=== PATIENT | female | born 1975 | race Caucasian/White ===

== ENCOUNTER 2017-05-04 23:51 | Emergency (ER) | payer SELFPAY ==
[~2017-05-04] VITALS: Ht 154.9 cm; Wt 63.6 kg
[~2017-05-04 23:51] MED LIST: IBUP-232 PO; Z.0.NO CURRENT MEDS
[2017-05-05] VITALS: BP 114/67; PULSE 62; RESP 24; TEMP 98.2; O2SAT 99
--- NOTE | 2017-05-05 00:24 | PD ---
HPI Chief Complaint: Chest Pain Time Seen by Provider: 00:02 Travel History International Travel<30 days: No Contact w/Intl Traveler<30days: No Traveled to known affect area: No History of Present Illness HPI digital account director used. 42yo F with no PMH presents to the ED with c/o left side chest pain at 10:30pm. States pain is constant and nonradiating. Cant really describe it. Has some tingling in her fingers in both hands as well as perioral numbness. That has now resolved. Denies any fever, sob, n/v, abdominal pain, focal weakness. Pt took aspirin 325mg PO and pain is better. No history of PE/DVT, recent travel or surgery. No family history of sudden cardiac . PFSH Past Medical History Medical History: Denies Significant Hx Immunizations Current: No Influenza Vaccination: No ?: Unknown : 5 Para: 5 Tubal Ligation: Yes (2001) Past Surgical History Surgical History: No Previous Surgery Social History Alcohol Use: No Tobacco Use: No Substance Use: No Allergies-Medications (Allergen,Severity, Reaction): Coded Allergies: No Known Allergies (Verified , 03/17/13) Reported Meds & Prescriptions Reported Meds & Active Scripts Active Motrin (Ibuprofen) 600 Mg Tab 1 Tab PO TID NEEDED FOR PAIN Reported No Current Meds (Miscellaneous Medication) Misc Review of Systems Except as stated in HPI: all other systems reviewed are Neg Physical Exam Narrative GENERAL: 42yo F in mild distress. SKIN: Focused skin assessment warm/dry. HEAD: Atraumatic. Normocephalic. EYES: Pupils equal and round. No scleral icterus. No injection or drainage. ENT: No nasal bleeding or discharge. Mucous membranes pink and moist. NECK: Trachea midline. No JVD. CARDIOVASCULAR: Regular rate and rhythm. No murmur appreciated. RESPIRATORY: No accessory muscle use. Clear to auscultation. Breath sounds equal bilaterally. GASTROINTESTINAL: Abdomen soft, non-tender, nondistended. MUSCULOSKELETAL: No obvious deformities. No clubbing. No cyanosis. No edema. NEUROLOGICAL: Awake and alert. No obvious cranial nerve deficits. Motor grossly within normal limits. Normal speech. PSYCHIATRIC: Appropriate mood and affect; insight and judgment normal. Data Data Last Documented VS Vital Signs Date Time Temp Pulse Resp B/P (MAP) Pulse Ox O2 Delivery O2 Flow Rate FiO2 05/05/17 08:21 05/05/17 07:00 98.5 72 17 100 Room Air Orders Orders Electrocardiogram (05/05/17 00:08) Basic Metabolic Panel (Bmp) (05/05/17 00:08) Complete Blood Count With Diff (05/05/17 00:08) Magnesium (Mg) (05/05/17 00:08) Prothrombin Time / Inr (Pt) (05/05/17 00:08) Act Partial Throm Time (Ptt) (05/05/17 00:08) Troponin I (05/05/17 00:08) Chest, Single Ap (05/05/17 00:08) Ecg Monitoring (05/05/17 00:08) Bilateral Bp Monitoring (05/05/17 00:08) Iv Access Insert/Monitor (05/05/17 00:08) Oximetry (05/05/17 00:08) Oxygen Administration (05/05/17 00:08) Sodium Chloride 0.9% Flush (Ns Flush) (05/05/17 00:15) Nitroglycerin Sl (Nitrostat Sl) (05/05/17 00:15) Potassium Chloride (Kcl) (05/05/17 01:30) Potassium Chlor 20 Meq Premix (Kcl 20 Me (05/05/17 01:30) Basic Metabolic Panel (Bmp) (05/05/17 06:30) Troponin I (05/05/17 06:31) Ed Discharge Order (05/05/17 08:15) Labs Laboratory Tests Test 05/05/17 00:40 05/05/17 06:32 White Blood Count 7.4 TH/MM3 Red Blood Count 4.80 MIL/MM3 Hemoglobin 13.8 GM/DL Hematocrit 40.0 % Mean Corpuscular Volume 83.3 FL Mean Corpuscular Hemoglobin 28.8 PG Mean Corpuscular Hemoglobin Concent 34.5 % Red Cell Distribution Width 13.1 % Platelet Count 202 TH/MM3 Mean Platelet Volume 11.2 FL Neutrophils (%) (Auto) 65.7 % Lymphocytes (%) (Auto) 25.5 % Monocytes (%) (Auto) 5.8 % Eosinophils (%) (Auto) 2.4 % Basophils (%) (Auto) 0.6 % Neutrophils # (Auto) 4.9 TH/MM3 Lymphocytes # (Auto) 1.9 TH/MM3 Monocytes # (Auto) 0.4 TH/MM3 Eosinophils # (Auto) 0.2 TH/MM3 Basophils # (Auto) 0.0 TH/MM3 CBC Comment DIFF FINAL Differential Comment Prothrombin Time 10.9 SEC Prothromb Time International Ratio 1.0 RATIO Activated Partial Thromboplast Time 24.2 SEC Blood Urea Nitrogen 10 MG/DL 8 MG/DL Creatinine 0.83 MG/DL 0.61 MG/DL Random Glucose 126 MG/DL 102 MG/DL Calcium Level 8.9 MG/DL 8.3 MG/DL Magnesium Level 1.8 MG/DL Sodium Level 141 MEQ/L 138 MEQ/L Potassium Level 2.5 MEQ/L 5.7 MEQ/L Chloride Level 107 MEQ/L 109 MEQ/L Carbon Dioxide Level 24.2 MEQ/L 23.4 MEQ/L Anion Gap 10 MEQ/L 6 MEQ/L Estimat Glomerular Filtration Rate 76 ML/MIN 108 ML/MIN Troponin I LESS THAN 0.02 NG/ML LESS THAN 0.02 NG/ML MDM Medical Decision Making Medical Screen Exam Complete: Yes Emergency Medical Condition: Yes Interpretation(s) EKG: NSR 98bpm. Normal axis. No ST segment elevation or depression. Differential Diagnosis ACS vs. anxiety vs. GERD vs. musculoskeletal pain Narrative Course 42yo F with atypical chest pain that sounds like anxiety. No cardiac risk factors. Will do labs including cardiac enzyme and signed out to PA to follow up. CXR negative. Pt can follow up as outpatient if negative labs. Diagnosis Primary Impression: Atypical chest pain Danitza Rodriguez DO May 05, 2017 00:24
[2017-05-05] MEDS: NITROGLYCERIN 0.4 MG SL 25 TABS/BTL SL SCH ×3 (00:25→00:50)
[2017-05-05 00:40] VITALS: BP 129/83
[2017-05-05] MEDS: SODIUM CHLORIDE 0.9% FLUSH 10 ML FLUSH IVF PRN ×2 (00:42→01:56)
[2017-05-05 00:49] VITALS: BP 122/76
[2017-05-05 00:58] LABS: AUTOMATED NEUTROPHIL # 4.9 TH/MM3 (1.8-7.7); BASOPHIL % 0.6 % (0.0-2.0); EOSINOPHIL # 0.2 TH/MM3 (0-0.4); EOSINOPHIL % 2.4 % (0.0-4.0); HEMOGLOBIN 13.8 GM/DL (11.6-15.3); LYMPH % 25.5 % (9.0-44.0); LYMPHOCYTE # 1.9 TH/MM3 (1.0-4.8); MEAN CELL VOLUME 83.3 FL (80.0-100.0); MEAN CORPUSCULAR HEMOGLOBIN 28.8 PG (27.0-34.0); MEAN CORPUSCULAR HGB CONC 34.5 % (32.0-36.0); MEAN PLATELET VOLUME 11.2 FL (7.0-11.0); MONO % 5.8 % (0.0-8.0); MONOCYTE # 0.4 TH/MM3 (0-0.9); NEUT % 65.7 % (16.0-70.0); PLATELET COUNT 202 TH/MM3 (150-450); RED CELL DISTRIBUTION WIDTH 13.1 % (11.6-17.2); WHITE BLOOD COUNT 7.4 TH/MM3 (4.0-11.0)
[2017-05-05 01:07] LABS: PROTHROMBIN TIME - PATIENT 10.9 SEC (9.8-11.6)
--- NOTE | 2017-05-05 01:11 | RADRPT ---
EXAM DATE/TIME: 05/05/2017 00:28 [facility] COMPARISON: No previous studies available for comparison. INDICATIONS : Chest pain. MEDICAL HISTORY : None. SURGICAL HISTORY : None. ENCOUNTER: Initial ACUITY: 1 day PAIN SCORE: 5/10 LOCATION: Bilateral chest FINDINGS: A single view of the chest demonstrates the lungs to be symmetrically aerated without evidence of mas s, infiltrate or effusion. The cardiomediastinal contours are unremarkable. Osseous structures are intact. CONCLUSION: No acute disease. Warren Graves MD on May 05, 2017 at 1:09 Board Certified Radiologist. This report was verified electronically.
[2017-05-05 01:14] VITALS: BP 126/76; PULSE 82
[2017-05-05 01:15] LABS: BICARBONATE 24.2 MEQ/L (21.0-32.0); BLOOD UREA NITROGEN 10 MG/DL (7-18); CALCIUM 8.9 MG/DL (8.5-10.1); CHLORIDE 107 MEQ/L (98-107); CREATININE 0.83 MG/DL (0.50-1.00); GLOMERULAR FILTRATION RATE 76 ML/MIN (>89); GLUCOSE,RANDOM 126 MG/DL (74-106); MAGNESIUM 1.8 MG/DL (1.5-2.5); SODIUM (NA) 141 MEQ/L (136-145); TROPONIN I LESS THAN 0.02 NG/ML (0.02-0.05)
[2017-05-05] MEDS ORDERED: POTASSIUM CHLORIDE 20 MEQ CONTROLLED RELEASE TAB PO ONE (01:30)
[2017-05-05] MEDS: POTASSIUM CHLOR 20 MEQ PREMIX 100 ML IV SCH ×3 (01:56→05:40)
[2017-05-05 06:30] VITALS: BP 128/69; PULSE 69; RESP 14; O2SAT 100
--- NOTE | 2017-05-05 06:57 | PD ---
Physical Exam Date Seen by Provider: May 05, 2017 Time Seen by Provider: 06:53 Data Data Last Documented VS Vital Signs Date Time Temp Pulse Resp B/P (MAP) Pulse Ox O2 Delivery O2 Flow Rate FiO2 05/05/17 06:30 69 14 128/69 (88) 100 Room Air 05/05/17 00:00 98.2 Orders Orders Electrocardiogram (05/05/17 00:08) Basic Metabolic Panel (Bmp) (05/05/17 00:08) Complete Blood Count With Diff (05/05/17 00:08) Magnesium (Mg) (05/05/17 00:08) Prothrombin Time / Inr (Pt) (05/05/17 00:08) Act Partial Throm Time (Ptt) (05/05/17 00:08) Troponin I (05/05/17 00:08) Chest, Single Ap (05/05/17 00:08) Ecg Monitoring (05/05/17 00:08) Bilateral Bp Monitoring (05/05/17 00:08) Iv Access Insert/Monitor (05/05/17 00:08) Oximetry (05/05/17 00:08) Oxygen Administration (05/05/17 00:08) Sodium Chloride 0.9% Flush (Ns Flush) (05/05/17 00:15) Nitroglycerin Sl (Nitrostat Sl) (05/05/17 00:15) Potassium Chloride (Kcl) (05/05/17 01:30) Potassium Chlor 20 Meq Premix (Kcl 20 Me (05/05/17 01:30) Basic Metabolic Panel (Bmp) (05/05/17 06:30) Troponin I (05/05/17 06:31) Labs Laboratory Tests Test 05/05/17 00:40 05/05/17 06:32 White Blood Count 7.4 TH/MM3 Red Blood Count 4.80 MIL/MM3 Hemoglobin 13.8 GM/DL Hematocrit 40.0 % Mean Corpuscular Volume 83.3 FL Mean Corpuscular Hemoglobin 28.8 PG Mean Corpuscular Hemoglobin Concent 34.5 % Red Cell Distribution Width 13.1 % Platelet Count 202 TH/MM3 Mean Platelet Volume 11.2 FL Neutrophils (%) (Auto) 65.7 % Lymphocytes (%) (Auto) 25.5 % Monocytes (%) (Auto) 5.8 % Eosinophils (%) (Auto) 2.4 % Basophils (%) (Auto) 0.6 % Neutrophils # (Auto) 4.9 TH/MM3 Lymphocytes # (Auto) 1.9 TH/MM3 Monocytes # (Auto) 0.4 TH/MM3 Eosinophils # (Auto) 0.2 TH/MM3 Basophils # (Auto) 0.0 TH/MM3 CBC Comment DIFF FINAL Differential Comment Prothrombin Time 10.9 SEC Prothromb Time International Ratio 1.0 RATIO Activated Partial Thromboplast Time 24.2 SEC Blood Urea Nitrogen 10 MG/DL Creatinine 0.83 MG/DL Random Glucose 126 MG/DL Calcium Level 8.9 MG/DL Magnesium Level 1.8 MG/DL Sodium Level 141 MEQ/L Potassium Level 2.5 MEQ/L Chloride Level 107 MEQ/L Carbon Dioxide Level 24.2 MEQ/L Anion Gap 10 MEQ/L Estimat Glomerular Filtration Rate 76 ML/MIN Troponin I LESS THAN 0.02 NG/ML [facility] Medical Record Reviewed: Yes Supervised Visit with DEBBIE: Yes Interpretation(s) CBC & BMP Diagram 05/05/17 00:40 Calcium Level 8.9, Magnesium Level 1.8 Last 24 hours Impressions Chest X-Ray 05/05/17 0008 Signed Impressions: Service Date/Time: April 00:28 - CONCLUSION: No acute disease. Warren Graves MD Differential Diagnosis . Narrative Course This is a patient who I was asked by Dr. Rodriguez to follow-up on her laboratory tests. It was felt that the patient was a low risk patient and be treated as an outpatient for her chest pain. Her chest pain was noncardiac in nature. Atypical in presentation. Most likely anxiety related phenomenon. On her laboratory testing was noted that her potassium was 2.5. She was given 40 mEq of potassium by mouth and 40 mEq IV. We will repeat her chemistry as well as her troponin. I anticipate her laboratory tests to be within limits and she can be discharged safely. This is atypical chest pain, anxiety, hypokalemia Diagnosis Primary Impression: Atypical chest pain Additional Impressions: anxiety hypokalemia Patient Instructions: General Instructions Additional Instruction: Rest. Increase fluids. Follow-up with a medical doctor in the next 1-2 days for recheck. The a diet rich in potassium. Return to the ER for any problems. Disposition: 01 DISCHARGE HOME Condition: Stable Salvador Wells May 05, 2017 06:57
[2017-05-05 07:00] VITALS: BP 128/69; PULSE 72; RESP 17; TEMP 98.5; O2SAT 100
[2017-05-05 07:32] LABS: BICARBONATE 23.4 MEQ/L (21.0-32.0); CALCIUM 8.3 MG/DL (8.5-10.1); CREATININE 0.61 MG/DL (0.50-1.00)
--- NOTE | 2017-05-05 14:48 | EKG ---
Date Performed: 05/05/2017 Time Performed: 00:08:05 PTAGE: 42 years EKG: Sinus rhythm NORMAL ECG NO PREVIOUS TRACING DOCTOR: Shirley Vera Interpretating Date/Time 05/05/2017 14:45:05
--- NOTE | 2017-05-05 14:48 | EKG ---
Date Performed: 05/05/2017 Time Performed: 00:08:05 PTAGE: 42 years EKG: Sinus rhythm NORMAL ECG NO PREVIOUS TRACING DOCTOR: Shirley Vera Interpretating Date/Time 05/05/2017 14:45:05
--- NOTE | 2017-05-05 14:48 | EKG ---
Date Performed: 05/05/2017 Time Performed: 00:08:05 PTAGE: 42 years EKG: Sinus rhythm NORMAL ECG NO PREVIOUS TRACING DOCTOR: Shirley Vera Interpretating Date/Time 05/05/2017 14:45:05
== END 2017-05-05 08:28 | disposition home or self-care (01) ==
LOC: NEPD 23:51
DX: R07.89 Other chest pain (principal); F41.9 Anxiety disorder, unspecified; E87.6 Hypokalemia
CPT/HCPCS: 71010; 80048; 83735; 84484; 85025; 85610; 85730; 93005; 96365; 96366; 99285; J3480